=== PATIENT | female | born 1980 | race Caucasian/White ===

== ENCOUNTER 2019-03-20 15:28 | Inpatient (IN) | payer OTHER ==
[~2019-03-20] VITALS: Ht 162.6 cm; Wt 82.6 kg
[2019-04-25] MEDS ORDERED: PRENATAL TABLE1 EAC1 PO (08:37)
== END 2019-04-27 13:18 | DRG 807 ==
LOC: OB/GYN 03-27 15:00 → LDR 04-25 06:51 → OB/GYN 04-25 06:51 → LDR 04-25 07:06 → OB/GYN 04-25 15:31
PROVIDERS: ADMIT Obstetrics & Gynecology Maternal & Fetal Medicine
PROC: 10E0XZZ Delivery of Products of Conception, External Approach (ICD-10-PCS; principal; 2019-04-25)
PROC: 0W8NXZZ Division of Female Perineum, External Approach (ICD-10-PCS; 2019-04-25)
PROC: 4A0HXFZ Measurement of Products of Conception, Cardiac Rhythm, External Approach (ICD-10-PCS; 2019-04-25)
PROC: 10D07Z6 Extraction of Products of Conception, Vacuum, Via Natural or Artificial Opening (ICD-10-PCS; 2019-04-25)
DX: O80 Encounter for full-term uncomplicated delivery (principal); Z37.0 Single live birth; Z3A.40 40 weeks gestation of pregnancy

== ENCOUNTER 2019-03-27 15:59 | Outpatient (CLI) | payer OTHER | END 2019-03-27 17:15 | disposition home or self-care (01) | LOC: NST 15:59 | DX: Z34.83 Encounter for supervision of other normal pregnancy, third trimester (principal) ==

== ENCOUNTER 2019-04-20 09:05 | Outpatient (CLI) | payer OTHER | END 2019-04-20 10:19 | disposition home or self-care (01) | LOC: NST 09:05 | DX: Z34.83 Encounter for supervision of other normal pregnancy, third trimester (principal) ==